=== PATIENT | female | born 1975 | race Caucasian/White ===

== ENCOUNTER 2022-05-20 12:05 | Emergency (ER) | payer OTHER ==
[~2022-05-20] VITALS: Ht 167.6 cm; Wt 73.5 kg
--- NOTE | 2022-05-20 12:18 | NUR ---
Dr. Castro at bedside.
[2022-05-20] MEDS ORDERED: MAG HYDROX/AL HYDROX/SIMETH 30 ML LIQUID UDC PO ONE (12:30)
[2022-05-20] MEDS ORDERED: IV NORMAL SALINE 1000 ML BAG IV ONE (12:30)
[2022-05-20] MEDS ORDERED: ONDANSETRON 4 MG/2 ML VIAL IV ONE (12:30)
[2022-05-20] MEDS ORDERED: LIDOCAINE VISCUS 2% 15 ML UDC MM ONE (12:30)
[2022-05-20] MEDS ORDERED: KETOROLAC TROMETHAMINE 15 MG INJ IVP ONE ×2 (12:30→14:00)
[2022-05-20] MEDS ORDERED: LIDOCAINE VISCUS 2% 15 ML UDC ONE (12:31)
[2022-05-20] MEDS ORDERED: KETOROLAC TROMETHAMINE 15 MG INJ ONE ×2 (12:31→13:56)
[2022-05-20] MEDS ORDERED: ONDANSETRON 4 MG/2 ML VIAL ONE (12:31)
[2022-05-20] MEDS ORDERED: MAG HYDROX/AL HYDROX/SIMETH 30 ML LIQUID UDC ONE (12:32)
[2022-05-20 12:55] LABS: *URINE HCG, QUAL NEGATIVE (NEGATIVE)
[2022-05-20 12:56] LABS: HEMATOCRIT 42.9 % (31.2-41.9); MEAN CORPUSCULAR HEMOGLOBIN 31.5 uug (24.7-32.8); MEAN CORPUSCULAR VOLUME 91.7 fL (75.5-95.3); PLATELET COUNT (AUTO) 324 K/uL (179-408)
[2022-05-20 13:08] LABS: *CLARITY,URINE CLEAR (CLEAR); *COLOR,URINE YELLOW (YELLOW)
[2022-05-20 13:09] LABS: *BILIRUBIN,URIN 1+ (NEGATIVE); *BLOOD, URINE TRACE (NEGATIVE); *KETONES,URINE 4+ (NEGATIVE); LEUKOCYTE ESTERASE ,URINE NEGATIVE (NEGATIVE); NITRITE, URINE NEGATIVE (NEGATIVE); UGLUCOSE NEGATIVE (NEGATIVE)
[2022-05-20 13:10] LABS: ETHANOL < 3 MG/DL (0-0)
[2022-05-20 13:14] LABS: *AMPHETAMINE, URINE NEGATIVE (NEGATIVE); *CANNABINOID, URINE POSITIVE (NEGATIVE); *COCCAINE, URINE NEGATIVE (NEGATIVE); *OPIATE, URINE NEGATIVE (NEGATIVE); *PHENCYCLIDINE SCREEN,URINE NEGATIVE (NEGATIVE)
[2022-05-20 13:28] LABS: BILIRUBIN,DIRECT 0.1 mg/dL (0.0-0.2); BILIRUBIN,TOTAL 0.9 mg/dL (0.2-1.0); POTASSIUM 3.2 mmol/L (3.5-5.1); TOTAL PROTEIN, SERUM 7.7 g/dL (6.4-8.2)
[2022-05-20 13:43] LABS: BACTERIA,URINE NONE SEEN /HPF (NONE SEEN); RBC,URINE 0-3 /HPF (0-3); SQUAMOUS EPITHELIAL CELL,UR MODERATE /HPF (NONE SEEN); WBC,URINE 0-3 /HPF (0-3)
[2022-05-20] MEDS ORDERED: POTA-194 PO (13:50)
[2022-05-20] MEDS ORDERED: MAG355OR18 PO (13:50)
[2022-05-20] MEDS ORDERED: ACET-2154 PO (13:50)
[2022-05-20] MEDS ORDERED: ONDA4TAB5 PO (13:50)
--- NOTE | 2022-05-20 14:05 | NUR ---
Dcd instructions and prescription given and discussed with pt., who verbalized understanding. Pt. left with abominal discomfort well controlleds.
[2022-05-20 15:08] LABS: BAND % (MANUAL) 3 % (0-10); LYMPHOCYTES % (MANUAL) 14 % (20-40); MONOCYTES % (MANUAL) 19 % (2-10); NEUTROPHILS % (MANUAL) 64 % (42-75)
== END 2022-05-20 14:06 | disposition home or self-care (01) ==
LOC: ER 12:05
DX: R10.13 Epigastric pain (principal); R11.2 Nausea with vomiting, unspecified; E87.6 Hypokalemia
CPT/HCPCS: 80076; 80048; 81001; 84703; 83690; 85007; 85025; 36415; 76705; 99284; 96374; 96375; 96376; 80320; 80307; J1885 ×2; J2405; J7040; 70030-TC; A4663; G0480

== ENCOUNTER 2022-05-21 02:41 | Inpatient (IN) | payer OTHER ==
[~2022-05-21] VITALS: Ht 167.6 cm; Wt 72.6 kg
[~2022-05-21 02:41] MED LIST: ACET-2154 PO; MAG355OR18 PO; ONDA4TAB5 PO; POTA-194 PO
[2022-05-21] MEDS ORDERED: HALOPERIDOL LACTATE 5 MG/1 ML VIAL IM ONE (03:15)
[2022-05-21] MEDS ORDERED: CAPSAICIN 0.075% CREAM 60 GM TUBE TOP ONE (03:15)
[2022-05-21] MEDS ORDERED: CAPSAICIN 0.075% CREAM 60 GM TUBE ONE (03:17)
[2022-05-21] MEDS ORDERED: HALOPERIDOL LACTATE 5 MG/1 ML VIAL ONE (03:17)
[2022-05-21] MEDS ORDERED: PANTOPRAZOLE SODIUM 40 MG VIAL ONE (03:27)
[2022-05-21] MEDS ORDERED: PANTOPRAZOLE SODIUM 40 MG VIAL IV ONE (03:30)
[2022-05-21] MEDS ORDERED: IV NS 1000 ML 1,000 ML IV ONE (03:30)
[2022-05-21] MEDS ORDERED: DICYCLOMINE HCL 20 MG TABLET PO STA (03:44)
[2022-05-21] MEDS ORDERED: DICYCLOMINE HCL 20 MG TABLET ONE (03:47)
--- NOTE | 2022-05-21 03:50 | NUR ---
Dr Higgins at bedside MSE in progress
--- NOTE | 2022-05-21 04:00 | NUR ---
Patient is a/ox4, NAD noted.
[2022-05-21] MEDS ORDERED: KETAMINE HCL 500 MG/10 ML INJ ONE (04:06)
[2022-05-21] MEDS ORDERED: KETAMINE HCL 500 MG/10 ML INJ IV ONE (04:15)
--- NOTE | 2022-05-21 04:50 | NUR ---
Patient is able to walk to the restroom with steady gait
[2022-05-21] MEDS ORDERED: SIMETHICONE 80 MG TAB.CHEW ONE (04:53)
[2022-05-21] MEDS ORDERED: SIMETHICONE 80 MG TAB.CHEW PO ONE (05:00)
[2022-05-21] MEDS ORDERED: MORPHINE SULFATE 4 MG/1 ML DISP.SYRIN ONE (05:11)
[2022-05-21] MEDS ORDERED: MORPHINE SULFATE 4 MG/1 ML DISP.SYRIN IV ONE (05:15)
[2022-05-21] MEDS ORDERED: POTASSIUM CHLORIDE 20 MEQ in IV D5/ 0.9% NACL 1,000 ML IV SCH (06:30)
[2022-05-21] MEDS ORDERED: IV D5W-0.45% NS +20 KCL 0 ML IV ONE (06:37)
[2022-05-21] MEDS ORDERED: IV DEXTROSE 5%-0.9%NS+20MeqKCL 1,000 ML IV ONE (06:39)
[2022-05-21] MEDS ORDERED: IV NORMAL SALINE 1000 ML BAG IV ONE (07:15)
[2022-05-21] MEDS ORDERED: PIPERACILLIN SODIUM/TAZOBACTAM 3.375 G in IV DEXTROSE 5% 50 ML IV ONE (07:15)
--- NOTE | 2022-05-21 07:24 | NUR ---
Change of shift report to Viraj BLANK
--- NOTE | 2022-05-21 08:00 | NUR ---
PT IN NAD;VSS; DENIES PAIN AT THIS TIME; REQUESTING TO SPEAK TO MD REGARDING MEDICATIONS AND CT SCAN REPORT. MD NOTIFIED.
[2022-05-21] MEDS ORDERED: PIPERACILLIN/TAZOBACTAM/D5W 50 ML IV ONE (08:29)
[2022-05-21] MEDS ORDERED: ACETAMINOPHEN 325 MG TABLET PO PRN (10:30)
[2022-05-21] MEDS ORDERED: ONDANSETRON 4 MG/2 ML VIAL IV PRN (10:30)
[2022-05-21] MEDS ORDERED: MORPHINE SULFATE 4 MG/1 ML DISP.SYRIN IV PRN (10:30)
[2022-05-21] MEDS ORDERED: ZOLPIDEM 5 MG TABLET PO PRN (10:30)
[2022-05-21] MEDS ORDERED: MAGNESIUM HYDROXIDE 30 ML LIQUID UDC PO PRN (10:30)
[2022-05-21] MEDS ORDERED: REMEDY ESSENTIAL ZINC PASTE 113 GM TP PRN (10:30)
[2022-05-21] MEDS ORDERED: IV LACTATED RINGERS SOLUTION 1,000 ML IV PRN (10:30)
[2022-05-21 10:37] VITALS: BP 131/88
[2022-05-21] MEDS ORDERED: PIPERACILLIN SODIUM/TAZOBACTAM 3.375 G in IV DEXTROSE 5% 50 ML IV SCH (14:00)
[2022-05-21] MEDS ORDERED: DIATR MEGLU/DIATRIZOATE SODIUM 30 ML BOTTLE ONE (16:08)
[2022-05-21 16:30] VITALS: BP 149/97
[2022-05-21] MEDS: PIPERACILLIN SODIUM/TAZOBACTAM 3.375 G in IV DEXTROSE 5% 100 ML IV SCH (16:33)
[2022-05-21 20:00] VITALS: BP 134/91
[2022-05-22 04:00] VITALS: BP 124/77
--- NOTE | 2022-05-22 06:00 | NUR ---
--PT REMAINS A/OX4 WITH STABLE VS. PT DENIES ANY PAIN OR ABD DISCOMFORT. PT DENIES ANY N/V. PT HAS BEEN AMB TO THE BR W/O. PT HAS BEEN VOIDING AND HAS HAD LIQUID STOOL X1. PT HAD NGT TO SX BUT PT STATES IT FAIL OUT AND SHE DIDN'T WANT IT REINSERTED. [employer] INFORMED AND [employer] CURATOR HERBARIUM(EDGARD) INFORMED-NO NEW ORDERS. PT HAS BEEN SLEEPING OFF AND ON. IV I/P VIA RIGHT FA. GEN. COND HAS BEEN STABLE. Radha LEONE RN
[2022-05-22 07:00] LABS: HEMATOCRIT 39.2 % (31.2-41.9); MEAN CORPUSCULAR HEMOGLOBIN 31.6 uug (24.7-32.8); MEAN CORPUSCULAR VOLUME 92.8 fL (75.5-95.3); PLATELET COUNT (AUTO) 306 K/uL (179-408)
[2022-05-22 07:21] LABS: CREATININE 0.9 mg/dL (0.6-1.3); MAGNESIUM 2.3 mg/dL (1.8-2.4); PHOSPHOROUS 3.2 mg/dL (2.5-4.9); POTASSIUM 3.5 mmol/L (3.5-5.1)
[2022-05-22] MEDS: PIPERACILLIN SODIUM/TAZOBACTAM 3.375 G in IV DEXTROSE 5% 100 ML IV SCH ×4 (08:00→08:22)
[2022-05-22] MEDS ORDERED: PANTOPRAZOLE SODIUM 40 MG VIAL IV SCH (09:00)
--- NOTE | 2022-05-22 09:50 | NUR ---
pt have clear liquid diet pt tolerated well no c/o pain and nausea noted
[2022-05-22 10:49] LABS: EOSINOPHILS % (MANUAL) 1 % (0-8); LYMPHOCYTES % (MANUAL) 21 % (20-40); MONOCYTES % (MANUAL) 13 % (2-10); NEUTROPHILS % (MANUAL) 65 % (42-75)
[2022-05-22 11:13] VITALS: BP 138/74
[2022-05-22 15:14] VITALS: BP 140/79
--- NOTE | 2022-05-22 18:34 | NUR ---
dc orders received noted and carried out,dc instruction and education given to the pt.pt said she will follow up with her pcp .dc heplock per md orders,pt left the facility via private car in stable condition
== END 2022-05-22 18:45 | disposition home or self-care (01) | DRG 247 ==
LOC: ER 02:45 → MEDSURG3 10:13
PROVIDERS: ADMIT Nurse Practitioner Acute Care; ATTEND Nurse Practitioner Acute Care
DX: K56.600 Partial intestinal obstruction, unspecified as to cause (principal); E87.1 Hypo-osmolality and hyponatremia; E86.0 Dehydration; Z20.822 Contact with and (suspected) exposure to COVID-19; E87.6 Hypokalemia
CPT/HCPCS: 36415; 70030-TC; 71045; 74018; 74250; 83605; 83735; 84100; 85025; 87040; A4663; A9150; C9113; G0378; J1630; J2270; J2543; J3480; J3490; J7040; J7042; J7120; Q9963